=== PATIENT | female | born 1935 | race Native Hawaiian/Other Pacific Islander ===

== ENCOUNTER 2016-08-24 08:52 | Outpatient (CLI) | payer OTHER ==
[~2016-08-24 08:52] MED LIST: ALLO100T22 PO; ALTACE1.25 MG PO; ALTOPREV20 MG PO; BYSTOLIC2.5 MG PO; DIAZ5TAB20 PO; DIPY200C PO; DONE5TAB PO; INDOMETHACIN25 MG PO
[2016-08-24 09:38] LABS: PLATELET COUNT 173 K/uL (152-353)
[2016-08-24 09:41] LABS: POTASSIUM 3.8 mmol/L (3.6-5.2)
== END 2016-08-24 19:30 | disposition home or self-care (01) ==
LOC: LABW 08:52
PROVIDERS: Internal Medicine Nephrology
DX: N18.3 Chronic kidney disease, stage 3 (moderate) (principal); N25.0 Renal osteodystrophy; E55.9 Vitamin D deficiency, unspecified; Z79.899 Other long term (current) drug therapy
CPT/HCPCS: 36415; 80053; 80061; 81000; 82306; 82607; 82747; 83970; 84100; 84443; 84479; 84481; 85027

== ENCOUNTER 2016-11-22 10:20 | Outpatient (CLI) | payer OTHER ==
[2016-11-22 10:58] LABS: PLATELET COUNT 186 K/uL (152-353)
[2016-11-22 11:07] LABS: POTASSIUM 4.2 mmol/L (3.6-5.2)
== END 2016-11-22 19:19 | disposition home or self-care (01) ==
LOC: LABW 10:20
PROVIDERS: Internal Medicine Nephrology
DX: N18.3 Chronic kidney disease, stage 3 (moderate) (principal); N25.0 Renal osteodystrophy; E55.9 Vitamin D deficiency, unspecified; E78.00 Pure hypercholesterolemia, unspecified; R82.99 Other abnormal findings in urine
CPT/HCPCS: 36415; 80053; 80061; 81000; 82306; 82607; 82747; 83970; 84100; 84443; 84480; 84481; 85027; 87086; 87088

== ENCOUNTER 2017-04-04 09:09 | Outpatient (CLI) | payer OTHER ==
[2017-04-04 09:54] LABS: PLATELET COUNT 194 K/uL (152-353)
[2017-04-04 10:13] LABS: POTASSIUM 4.6 mmol/L (3.6-5.2)
== END 2017-04-04 19:01 | disposition home or self-care (01) ==
LOC: LABW 09:09
PROVIDERS: Internal Medicine Nephrology
DX: N18.3 Chronic kidney disease, stage 3 (moderate) (principal); N25.0 Renal osteodystrophy; E55.9 Vitamin D deficiency, unspecified
CPT/HCPCS: 36415; 80053; 80061; 81000; 82306; 82607; 82747; 83970; 84100; 84443; 84480; 84481; 85027

== ENCOUNTER 2017-07-11 10:09 | Outpatient (CLI) | payer OTHER ==
[2017-07-11 10:33] LABS: PLATELET COUNT 195 K/uL (152-353)
[2017-07-11 10:54] LABS: POTASSIUM 4.5 mmol/L (3.6-5.2)
== END 2017-07-11 19:09 | disposition home or self-care (01) ==
LOC: LABW 10:09
PROVIDERS: Internal Medicine Nephrology
DX: N18.3 Chronic kidney disease, stage 3 (moderate) (principal); N25.0 Renal osteodystrophy; E55.9 Vitamin D deficiency, unspecified; Z79.899 Other long term (current) drug therapy; Z51.81 Encounter for therapeutic drug level monitoring
CPT/HCPCS: 36415; 80053; 80061; 81000; 82306; 82607; 82747; 83970; 84100; 84443; 84480; 84481; 85027

== ENCOUNTER 2017-11-02 12:14 | Outpatient (CLI) | payer OTHER ==
[2017-11-02 12:40] LABS: PLATELET COUNT 259 K/uL (152-353)
[2017-11-02 13:23] LABS: POTASSIUM 4.6 mmol/L (3.6-5.2)
== END 2017-11-02 22:57 | disposition home or self-care (01) ==
LOC: LABW 12:14
PROVIDERS: Internal Medicine Nephrology
DX: N18.3 Chronic kidney disease, stage 3 (moderate) (principal); N25.0 Renal osteodystrophy; E55.9 Vitamin D deficiency, unspecified; E78.00 Pure hypercholesterolemia, unspecified
CPT/HCPCS: 36415; 80053; 80061; 81000; 82607; 82652; 82747; 83970; 84100; 84443; 84480; 84481; 85027

== ENCOUNTER 2018-02-28 10:38 | Outpatient (CLI) | payer OTHER ==
[2018-02-28 11:07] LABS: PLATELET COUNT 195 K/uL (152-353)
[2018-02-28 11:27] LABS: POTASSIUM 4.4 mmol/L (3.6-5.2)
== END 2018-02-28 22:38 | disposition home or self-care (01) ==
LOC: LABW 10:38
PROVIDERS: Internal Medicine Nephrology
DX: N18.3 Chronic kidney disease, stage 3 (moderate) (principal); N25.0 Renal osteodystrophy; E55.9 Vitamin D deficiency, unspecified; R94.6 Abnormal results of thyroid function studies
CPT/HCPCS: 36415; 80053; 80061; 81000; 82607; 82652; 82747; 83970; 84100; 84443; 84480; 84481; 85027

== ENCOUNTER 2019-04-22 17:24 | Emergency (ER) | payer OTHER ==
[~2019-04-22] VITALS: Ht 172.7 cm; Wt 111.1 kg
[2019-04-22 19:44] VITALS: BP 142/68; TEMP 98.3
== END 2019-04-22 19:44 | disposition home or self-care (01) ==
LOC: ED 17:24
PROC: 0HQGXZZ Repair Left Hand Skin, External Approach (ICD-10-PCS; principal; 2019-04-22)
DX: S61.211A Laceration without foreign body of left index finger without damage to nail, initial encounter (principal); W23.0XXA Caught, crushed, jammed, or pinched between moving objects, initial encounter; Y92.89 Other specified places as the place of occurrence of the external cause
CPT/HCPCS: 99283

== ENCOUNTER 2019-07-22 09:39 | Outpatient (CLI) | payer OTHER ==
[2019-07-22 10:08] LABS: PLATELET COUNT 187 K/uL (152-353)
[2019-07-22 10:35] LABS: POTASSIUM 4.5 mmol/L (3.6-5.2)
== END 2019-07-22 19:23 | disposition home or self-care (01) ==
LOC: LABW 09:39
PROVIDERS: Internal Medicine Nephrology
DX: I12.9 Hypertensive chronic kidney disease with stage 1 through stage 4 chronic kidney disease, or unspecified chronic kidney disease (principal); I63.89 Other cerebral infarction; M10.9 Gout, unspecified; J45.909 Unspecified asthma, uncomplicated; G47.39 Other sleep apnea; E53.8 Deficiency of other specified B group vitamins; D64.9 Anemia, unspecified; N18.3 Chronic kidney disease, stage 3 (moderate); E55.9 Vitamin D deficiency, unspecified
CPT/HCPCS: 36415; 80053; 81000; 82306; 82570; 82607; 82728; 82746; 83540; 83550; 83970; 84100; 84155; 84439; 84443; 85027

== ENCOUNTER 2019-10-18 10:17 | Outpatient (CLI) | payer OTHER | END 2019-10-18 22:46 | disposition home or self-care (01) | LOC: LABW 10:17 | DX: J45.909 Unspecified asthma, uncomplicated (principal); J43.9 Emphysema, unspecified; R06.02 Shortness of breath; G47.33 Obstructive sleep apnea (adult) (pediatric) | CPT/HCPCS: 36415; 82785; 85048; 86003 ==

== ENCOUNTER 2020-01-28 09:16 | Outpatient (CLI) | payer OTHER ==
[2020-01-28 10:06] LABS: PLATELET COUNT 176 K/uL (152-353)
[2020-01-28 10:25] LABS: POTASSIUM 4.5 mmol/L (3.6-5.2)
== END 2020-01-28 20:05 | disposition home or self-care (01) ==
LOC: LABW 09:16
PROVIDERS: Internal Medicine Nephrology
DX: I10 Essential (primary) hypertension (principal); I63.9 Cerebral infarction, unspecified; M10.9 Gout, unspecified; J45.909 Unspecified asthma, uncomplicated; G47.39 Other sleep apnea; E03.8 Other specified hypothyroidism; E55.9 Vitamin D deficiency, unspecified; R82.998 Other abnormal findings in urine
CPT/HCPCS: 36415; 80053; 81000; 82306; 82570; 82607; 82746; 83970; 84100; 84155; 84439; 84443; 85027; 87086; 87088

== ENCOUNTER 2020-09-14 08:47 | Outpatient (CLI) | payer OTHER ==
[2020-09-14 09:11] LABS: PLATELET COUNT 190 K/uL (152-353)
[2020-09-14 09:54] LABS: POTASSIUM 4.7 mmol/L (3.6-5.2)
== END 2020-09-14 19:16 | disposition home or self-care (01) ==
LOC: LABW 08:47
PROVIDERS: ATTEND Internal Medicine Nephrology
DX: I10 Essential (primary) hypertension (principal); I63.9 Cerebral infarction, unspecified; M10.9 Gout, unspecified; J45.909 Unspecified asthma, uncomplicated; G47.30 Sleep apnea, unspecified; E03.8 Other specified hypothyroidism; E55.9 Vitamin D deficiency, unspecified; D64.89 Other specified anemias; E53.8 Deficiency of other specified B group vitamins; R82.998 Other abnormal findings in urine
CPT/HCPCS: 36415; 80053; 80061; 81000; 82306; 82570; 83970; 84100; 84155; 84439; 84443; 85027; 87086; 87088

== ENCOUNTER 2020-11-10 13:54 | Outpatient (CLI) | payer OTHER | END 2020-11-10 21:27 | disposition home or self-care (01) | LOC: LABW 13:54 | PROVIDERS: ATTEND Nurse Practitioner | DX: R32 Unspecified urinary incontinence (principal); Z87.440 Personal history of urinary (tract) infections | CPT/HCPCS: 81000; 87086; 87088 ==

== ENCOUNTER 2020-11-16 11:30 | Outpatient (CLI) | payer OTHER | END 2020-11-16 19:22 | disposition home or self-care (01) | LOC: LABW 11:30 | PROVIDERS: ATTEND Internal Medicine Nephrology | DX: E03.8 Other specified hypothyroidism (principal) | CPT/HCPCS: 84439; 84443 ==

== ENCOUNTER 2021-03-08 08:17 | Outpatient (CLI) | payer OTHER ==
[2021-03-08 08:56] LABS: PLATELET COUNT 170 K/uL (152-353)
[2021-03-08 09:26] LABS: POTASSIUM 4.1 mmol/L (3.6-5.2)
== END 2021-03-08 20:53 | disposition home or self-care (01) ==
LOC: LABW 08:17
PROVIDERS: ATTEND Internal Medicine Nephrology
DX: I10 Essential (primary) hypertension (principal); I63.9 Cerebral infarction, unspecified; M10.9 Gout, unspecified; J45.909 Unspecified asthma, uncomplicated; G47.30 Sleep apnea, unspecified; E03.8 Other specified hypothyroidism; E55.9 Vitamin D deficiency, unspecified; D64.9 Anemia, unspecified; E53.8 Deficiency of other specified B group vitamins
CPT/HCPCS: 36415; 80053; 80061; 81000; 82306; 82570; 82607; 82728; 82746; 83540; 83550; 83970; 84100; 84155; 84439; 84443; 85027

== ENCOUNTER 2021-04-30 08:56 | Outpatient (CLI) | payer OTHER | END 2021-04-30 19:16 | disposition home or self-care (01) | LOC: LABW 08:56 | PROVIDERS: ATTEND Psychiatry & Neurology Neurology | DX: G31.84 Mild cognitive impairment of uncertain or unknown etiology (principal); Z86.73 Personal history of transient ischemic attack (TIA), and cerebral infarction without residual deficits; R51.9 Headache, unspecified; Z09 Encounter for follow-up examination after completed treatment for conditions other than malignant neoplasm | CPT/HCPCS: 36415; 82607; 82746; 84165; 84443; 86592 ==

== ENCOUNTER 2021-07-20 08:35 | Outpatient (CLI) | payer OTHER | END 2021-07-20 18:55 | disposition home or self-care (01) | LOC: LABW 08:35 | PROVIDERS: ATTEND Internal Medicine Nephrology | DX: E03.8 Other specified hypothyroidism (principal) | CPT/HCPCS: 36415; 84439; 84443 ==

== ENCOUNTER 2021-07-21 09:15 | Outpatient (CLI) | payer OTHER ==
[2021-07-21 09:51] LABS: PLATELET COUNT 162 K/uL (152-353)
[2021-07-21 10:34] LABS: POTASSIUM 3.9 mmol/L (3.6-5.2)
== END 2021-07-21 20:19 | disposition home or self-care (01) ==
LOC: LABW 09:15
PROVIDERS: ATTEND Internal Medicine Nephrology
DX: N18.4 Chronic kidney disease, stage 4 (severe) (principal); Z79.899 Other long term (current) drug therapy; D64.89 Other specified anemias
CPT/HCPCS: 36415; 80053; 81000; 82306; 82570; 82728; 83036; 83540; 83550; 83970; 84100; 84155; 85027

== ENCOUNTER 2021-08-25 21:55 | Emergency (ER) | payer OTHER ==
[~2021-08-25] VITALS: Ht 172.7 cm; Wt 107.5 kg
[2021-08-25 23:23] LABS: PLATELET COUNT 153 K/uL (152-353)
[2021-08-25 23:41] LABS: POTASSIUM 3.9 mmol/L (3.6-5.2)
[2021-08-26 01:30] VITALS: BP 132/58; TEMP 98.1
== END 2021-08-26 01:30 | disposition home or self-care (01) ==
LOC: ED 21:55
PROVIDERS: Emergency Medicine
DX: M79.18 Myalgia, other site (principal); J43.9 Emphysema, unspecified
CPT/HCPCS: 36415; 80053; 84484; 85027; 93005; 99283

== ENCOUNTER 2021-11-15 08:35 | Outpatient (CLI) | payer OTHER ==
[2021-11-15 09:03] LABS: PLATELET COUNT 169 K/uL (152-353)
[2021-11-15 09:54] LABS: POTASSIUM 3.8 mmol/L (3.6-5.2)
== END 2021-11-15 19:07 | disposition home or self-care (01) ==
LOC: LABW 08:35
PROVIDERS: ATTEND Internal Medicine Nephrology
DX: N18.4 Chronic kidney disease, stage 4 (severe) (principal); N25.81 Secondary hyperparathyroidism of renal origin; R94.6 Abnormal results of thyroid function studies; E78.49 Other hyperlipidemia; E55.9 Vitamin D deficiency, unspecified; E88.9 Metabolic disorder, unspecified; D51.8 Other vitamin B12 deficiency anemias; D64.89 Other specified anemias; E11.65 Type 2 diabetes mellitus with hyperglycemia; E03.8 Other specified hypothyroidism
CPT/HCPCS: 36415; 80053; 80061; 81000; 82570; 82607; 82728; 82746; 83036; 83540; 83550; 83970; 84100; 84156; 84439; 84443; 85027

== ENCOUNTER 2021-12-13 08:42 | Outpatient (CLI) | payer OTHER ==
[2021-12-13 09:31] LABS: PLATELET COUNT 183 K/uL (152-353)
[2021-12-13 10:29] LABS: POTASSIUM 3.8 mmol/L (3.6-5.2)
== END 2021-12-13 18:54 | disposition home or self-care (01) ==
LOC: LABW 08:42
PROVIDERS: ATTEND Internal Medicine Nephrology
DX: I12.9 Hypertensive chronic kidney disease with stage 1 through stage 4 chronic kidney disease, or unspecified chronic kidney disease (principal); N18.4 Chronic kidney disease, stage 4 (severe); D51.8 Other vitamin B12 deficiency anemias; D64.89 Other specified anemias; E55.9 Vitamin D deficiency, unspecified; E88.9 Metabolic disorder, unspecified; R82.998 Other abnormal findings in urine; Z79.899 Other long term (current) drug therapy
CPT/HCPCS: 36415; 80053; 80061; 81000; 82306; 82570; 82607; 82728; 82746; 83036; 83540; 83550; 83970; 84100; 84156; 84439; 84443; 85027; 87086; 87088

== ENCOUNTER 2022-05-21 09:29 | Outpatient (CLI) | payer OTHER ==
[2022-05-21 10:35] LABS: PLATELET COUNT 206 K/uL (152-353)
[2022-05-21 11:29] LABS: POTASSIUM 4.4 mmol/L (3.6-5.2)
== END 2022-05-21 19:20 | disposition home or self-care (01) ==
LOC: LABW 09:29
PROVIDERS: ATTEND Internal Medicine Nephrology
DX: N18.4 Chronic kidney disease, stage 4 (severe) (principal); Z79.899 Other long term (current) drug therapy
CPT/HCPCS: 36415; 80053; 80061; 81002; 82306; 82570; 82607; 82728; 82746; 83036; 83540; 83550; 83970; 84100; 84156; 84439; 84443; 85027

== ENCOUNTER 2022-09-16 09:14 | Outpatient (CLI) | payer OTHER ==
[2022-09-16 09:47] LABS: PLATELET COUNT 179 K/uL (152-353)
[2022-09-16 09:54] LABS: POTASSIUM 4.1 mmol/L (3.6-5.2)
== END 2022-09-16 19:52 | disposition home or self-care (01) ==
LOC: LABW 09:14
PROVIDERS: ATTEND Internal Medicine Nephrology
DX: I12.9 Hypertensive chronic kidney disease with stage 1 through stage 4 chronic kidney disease, or unspecified chronic kidney disease (principal); N18.4 Chronic kidney disease, stage 4 (severe); D51.8 Other vitamin B12 deficiency anemias; D64.89 Other specified anemias; E55.9 Vitamin D deficiency, unspecified; E88.9 Metabolic disorder, unspecified; R94.6 Abnormal results of thyroid function studies; E78.49 Other hyperlipidemia; E11.620 Type 2 diabetes mellitus with diabetic dermatitis
CPT/HCPCS: 36415; 80053; 81002; 82306; 82570; 82607; 82746; 83735; 83970; 84100; 84156; 84550; 85027

== ENCOUNTER 2022-12-27 09:17 | Outpatient (CLI) | payer OTHER ==
[2022-12-27 10:03] LABS: PLATELET COUNT 219 K/uL (152-353)
[2022-12-27 11:23] LABS: POTASSIUM 4.1 mmol/L (3.6-5.2)
== END 2022-12-27 19:58 | disposition home or self-care (01) ==
LOC: LABW 09:17
PROVIDERS: ATTEND Internal Medicine Nephrology
DX: I12.9 Hypertensive chronic kidney disease with stage 1 through stage 4 chronic kidney disease, or unspecified chronic kidney disease (principal); N18.4 Chronic kidney disease, stage 4 (severe); D51.8 Other vitamin B12 deficiency anemias; D64.89 Other specified anemias; E55.9 Vitamin D deficiency, unspecified; E88.9 Metabolic disorder, unspecified; R94.6 Abnormal results of thyroid function studies; E78.49 Other hyperlipidemia; E11.65 Type 2 diabetes mellitus with hyperglycemia; B18.2 Chronic viral hepatitis C; R76.8 Other specified abnormal immunological findings in serum
CPT/HCPCS: 36415; 80053; 80061; 82306; 82607; 82728; 82746; 83036; 83540; 83550; 83970; 84100; 84439; 84443; 85027

== ENCOUNTER 2022-12-28 09:51 | Outpatient (CLI) | payer OTHER | END 2022-12-28 20:36 | disposition home or self-care (01) | LOC: LAB 09:51 | PROVIDERS: ATTEND Internal Medicine Nephrology | DX: I12.9 Hypertensive chronic kidney disease with stage 1 through stage 4 chronic kidney disease, or unspecified chronic kidney disease (principal); N18.4 Chronic kidney disease, stage 4 (severe); D51.8 Other vitamin B12 deficiency anemias; D64.89 Other specified anemias; E55.9 Vitamin D deficiency, unspecified; E88.89 Other specified metabolic disorders; R94.6 Abnormal results of thyroid function studies; E78.49 Other hyperlipidemia; E11.65 Type 2 diabetes mellitus with hyperglycemia; B18.2 Chronic viral hepatitis C; R76.8 Other specified abnormal immunological findings in serum | CPT/HCPCS: 81000 ==